=== PATIENT | male | born 1990 | race Caucasian/White ===

== ENCOUNTER 2016-09-28 12:15 | Emergency (ER) | payer OTHER ==
[~2016-09-28] VITALS: Ht 157.5 cm; Wt 67.9 kg
[2016-09-28 12:18] VITALS: Ht 157.5 cm; Wt 67.9 kg
--- NOTE | 2016-09-28 13:28 | ERD ---
ER Documentation Chief Complaint Date/Time DATE: 09/28/16 TIME: 13:26 Chief Complaint RIGHT LOWER ABD PAIN RAD TESTICLE, INTERMITTENT X1 WEEK, WORSEN LAST NIGHT HPI This is a 26-year-old male who presents to the emergency department today complaining of right testicular pain and swelling that started 1 week ago. Patient states that he was sleeping when the pain started. States the pain goes up to the right side of his stomach states he took ibuprofen for the pain and the swelling had decreased but then it returned last night it was worse. Patient states that he was last sexually active 2-3 weeks ago and has one partner. States he has some dysuria. Denies any fevers or chills. ROS All systems reviewed and are negative except as per history of present illness. Medications Home Meds Active Scripts Ciprofloxacin Hcl* (Ciprofloxacin Hcl*) 500 Mg Tablet, 500 MG PO BID for 14 Days , TAB Prov:HEBER TIWARI PA-C 09/28/16 Ibuprofen* (Motrin*) 800 Mg Tab, 800 MG PO Q6, #30 TAB Prov:HEBER TIWARI PA-C 09/28/16 Hydrocodone/Acetaminophen ([place] 5-325 Tablet) 1 Each Tablet, 1 TAB PO Q6H Y for PAIN, #12 TAB Prov:HEBER TIWARI PA-C 09/28/16 Allergies Allergies: Coded Allergies: No Known Allergy (Unverified , 09/28/16) Physical Exam Vitals Vital Signs Date Time Temp Pulse Resp B/P Pulse Ox O2 Delivery O2 Flow Rate FiO2 09/28/16 12:18 98.1 64 18 106/54 99 Physical Exam Const: No acute distress Head: Atraumatic Eyes: Normal Conjunctiva ENT: Normal External Ears, Nose and Mouth. Neck: Full range of motion..~ No meningismus. Resp: Clear to auscultation bilaterally Cardio: Regular rate and rhythm, no murmurs Abd: Soft, right lower quadrant tenderness non distended. Normal bowel sounds. No specific tenderness at McBurney's. uncircumcised penis. No purulent discharge. Right testicle with erythema , warmth and swelling and tenderness palpation. Left testicle nontender. Both testicles descended bilaterally. Skin: No petechiae or rashes Back: No midline or flank tenderness Ext: No cyanosis, or edema Neur: Awake and alert Psych: Normal Mood and Affect Result Diagram: 09/28/16 1345 09/28/16 1345 Results 24 hrs Laboratory Tests Test 09/28/16 13:45 White Blood Count 14.810^3/ul Red Blood Count 5.1110^6/ul Hemoglobin 16.6g/dl Hematocrit 47.7% Mean Corpuscular Volume 93.3fl Mean Corpuscular Hemoglobin 32.5pg Mean Corpuscular Hemoglobin Concent 34.8g/dl Red Cell Distribution Width 12.2% Platelet Count 72684^3/UL Mean Platelet Volume 9.3fl Neutrophils % 85.1% Lymphocytes % 8.8% Monocytes % 5.5% Eosinophils % 0.0% Basophils % 0.1% Nucleated Red Blood Cells % 0.0/100WBC Neutrophils # 12.610^3/ul Lymphocytes # 1.310^3/ul Monocytes # 0.810^3/ul Eosinophils # 0.010^3/ul Basophils # 0.010^3/ul Nucleated Red Blood Cells # 0.010^3/ul Urine Color LT. YELLOW Urine Clarity CLEAR Urine pH 6.5 Urine Specific [place] 1.020 Urine Ketones 40 Urine Nitrite NEGATIVE Urine Bilirubin NEGATIVE Urine Urobilinogen 2.0 E.U./dL Urine Leukocyte Esterase TRACE Urine Microscopic RBC 0-2/HPF Urine Microscopic WBC 2-5/HPF Urine Squamous Epithelial Cells OCCASIONAL Urine Mucus MANY Urine Hemoglobin NEGATIVE Urine Glucose NEGATIVE% Urine Total Protein TRACE Sodium Level 141mmol/L Potassium Level 4.0mmol/L Chloride Level 100mmol/L Carbon Dioxide Level 26mmol/L Anion Gap 19 Blood Urea Nitrogen 11mg/dl Creatinine 0.74mg/dl Glucose Level 94mg/dl Calcium Level 9.8mg/dl Total Bilirubin 2.1mg/dl Direct Bilirubin 0.00mg/dl Indirect Bilirubin 2.1mg/dl Aspartate Amino Transf (AST/SGOT) 21IU/L Alanine Aminotransferase (ALT/SGPT) 22IU/L Alkaline Phosphatase 87IU/L Total Protein 8.5g/dl Albumin 4.6g/dl Globulin 3.90g/dl Albumin/Globulin Ratio 1.17 Lipase 30U/L Current Medications Medications (Trade) Dose Ordered Sig/Mariaa Route PRN Reason Start Time Stop Time Status Last Admin Dose Admin Acetaminophen/ Hydrocodone Bitart ([place] (5/325)) 1 tab ONCE ONCE PO 09/28/16 13:30 09/28/16 13:31 DC 09/28/16 13:37 Azithromycin (Zithromax) 1,000 mg ONCE ONCE PO 09/28/16 15:30 09/28/16 15:31 DC 09/28/16 15:30 Ceftriaxone Sodium (Rocephin) 250 mg ONCE ONCE IM 09/28/16 15:30 09/28/16 15:31 DC 09/28/16 15:30 DIAGNOSTIC IMAGING REPORT Patient: ARUN BUTLER : 1990 Age: 26 Sex: M MR #: [id number] DOS: 09/28/16 1307 Ordering MD: HEBER TIWARI PA-C Location: [facility] Room/Bed: PROCEDURE: Scrotal ultrasound CLINICAL INDICATION: Right testicular pain and swelling TECHNIQUE: Scrotal ultrasound was performed with sagittal and transverse views. Davis scale and color imaging was performed. Images were reviewed on high resolution PACS monitors. COMPARISON: None available FINDINGS: The right testicle measures 3.4 x 2.3 x 2.5 cm. There is normal size and echogenicity and morphology of the right testicle with normal blood flow. The right epididymis is enlarged and hypervascular measuring 2.0 x 1.3 cm. There is mild thickening of the right scrotal wall. Small right hydrocele with septations is present. No mass or cyst or other abnormality is present. There is no evidence for a varicocele. The left testicle measures 3.1 x 1.8 x 2.3 cm. There is normal size and echogenicity and morphology of the left testicle with normal blood flow. The left epididymis is normal. No hydrocele is seen. Soft tissues are unremarkable. No mass or cyst or other abnormality is present. There is no evidence for a varicocele. IMPRESSION: 1. Enlarged hypervascular right epididymis with associated septated hydrocele and right scrotal wall edema. Findings consistent with epididymitis. 2. No evidence for testicular torsion in either testes. RPTAT: HH .North Pedraza MD, MD Date Time Electronically viewed and signed by .North Pedraza MD, MD on 09/28/2016 14:40 .M/ CC: HEBER TIWARI PA-C Procedures/MDM This is a 26-year-old male who presents the emergency department today complaining of right testicular pain and swelling for the past week. On physical exam patient had a significant amount testicular pain and swelling and therefore I did obtain laboratory work as well as an ultrasound Laboratory work is an elevated white blood cell count of 14.8. He is not anemic. Platelets are within normal limits. Electrolytes are within normal limits. Glucose within normal limits. Liver functions normal limits. Lipase within normal limits. UA shows trace leukocyte Estrace Urine was sent for gonorrhea and chlamydia Testicular ultrasound shows enlarged hypervascular right epididymis with associated septated hydrocele and right scrotal wall edema. Findings consistent with epididymitis. There is no evidence for testicular torsion in either testes. There is no mass or cyst or abnormality present or evidence of a varicocele. Patient's epididymitis likely the source of his pain and swelling. There is no evidence of testicular torsion or abscess. I feel the patient's right lower quadrant pain is related to his testicular pain I do not feel he requires a CT scan given that he had nonspecific tenderness in the right lower quadrant and no specific at McBurney's point. Patient indicated that the pain really only comes when he has pain in his testicle. Given patient's age I will treat him for possible gonorrhea and chlamydia here in the emergency department. I have explained this to the patient. I explained to the patient he does need to notify his sexual partner so that they may get tested. Patient was given azithromycin and Rocephin here in the emergency department. I will give him a prescription for Cipro for home for 2 weeks as well as a short course of [place] for home as well as Motrin. Patient was given [place] here in the emergency department. At this time the patient is stable for discharge and outpatient management. Patient should follow up with their PCP in the next 1-2 days. They may return to the emergency department sooner for any persistent or worsening of symptoms. Patient understood and agreed with the plan. Discussed the patient with Dr. Leblanc and he is in agreement with the plan Departure Diagnosis: Primary Impression: Epididymitis Condition: Fair HEBER TIWARI PA-C September 28, 2016 13:28
[2016-09-28] MEDS ORDERED: HYDROCODONE/APAP (5/325) TAB PO ONE (13:30)
[2016-09-28 13:53] LABS: ADD SCAN DIFF NO
[2016-09-28 13:55] LABS: BASOPHILS % 0.1 % (0.0-2.0); HEMATOCRIT 47.7 % (42.0-52.0); HEMOGLOBIN 16.6 g/dl (14.0-18.0); LYMPHOCYTES # 1.3 10^3/ul (0.8-2.9); LYMPHOCYTES % 8.8 % (15.0-51.0); MEAN CORPUSCULAR HEMOGLOBIN 32.5 pg (29.0-33.0); MEAN CORPUSCULAR HGB CONC 34.8 g/dl (32.0-37.0); MEAN CORPUSCULAR VOLUME 93.3 fl (82.0-101.0); MEAN PLATELET VOLUME 9.3 fl (7.4-10.4); MONOCYTE # 0.8 10^3/ul (0.3-0.9); MONOCYTES % 5.5 % (0.0-11.0); NEUTROPHIL # 12.6 10^3/ul (1.6-7.5); NEUTROPHILS % 85.1 % (39.0-77.0); PLATELET COUNT 232 10^3/UL (140-415); RED BLOOD COUNT 5.11 10^6/ul (4.70-6.10); RED CELL DISTRIBUTION WIDTH 12.2 % (11.5-14.5); WHITE BLOOD COUNT 14.8 10^3/ul (4.8-10.8)
[2016-09-28 13:57] LABS: ADD UMIC YES; URINE BLOOD (Dip) NEGATIVE (NEGATIVE); URINE COLOR LT. YELLOW (YELLOW); URINE GLUCOSE (Dip) NEGATIVE (NEGATIVE); URINE KETONES (Dip) 40 (NEGATIVE); URINE LEUKOCYTE ESTERASE (Dip) TRACE (NEGATIVE); URINE NITRITE (Dip) NEGATIVE (NEGATIVE); URINE TOTAL PROTEIN (Dip) TRACE (NEGATIVE); URINE UROBILINOGEN (Dip) 2.0 E.U./dL (0.1-1.0)
[2016-09-28 14:11] LABS: ALBUMIN 4.6 g/dl (3.3-4.9)
[2016-09-28 14:14] LABS: ALBUMIN/GLOBULIN RATIO 1.17; BILIRUBIN,INDIRECT 2.1 mg/dl (0-1.1); BILIRUBIN,TOTAL 2.1 mg/dl (0.2-1.3); CREATININE 0.74 mg/dl (0.61-1.24); TOTAL PROTEIN 8.5 g/dl (6.1-8.1)
[2016-09-28 14:15] LABS: CALCIUM 9.8 mg/dl (8.4-10.2); URINE BILIRUBIN (Dip) NEGATIVE (NEGATIVE)
[2016-09-28 14:18] LABS: SQUAMOUS EPITHELIAL CELL,UR OCCASIONAL
[2016-09-28 14:19] LABS: MUCUS,URINE MANY; URINE RBCS 0-2 /HPF (0)
--- NOTE | 2016-09-28 14:40 | RADRPT ---
PROCEDURE: Scrotal ultrasound CLINICAL INDICATION: Right testicular pain and swelling TECHNIQUE: Scrotal ultrasound was performed with sagittal and transverse views. Davis scale and co howard imaging was performed. Images were reviewed on high resolution PACS monitors. COMPARISON: None available FINDINGS: The right testicle measures 3.4 x 2.3 x 2.5 cm. There is normal size and echogenicity and morphology of the right testicle with normal blood flow. The right epididymis is enlarged and hypervascular me asuring 2.0 x 1.3 cm. There is mild thickening of the right scrotal wall. Small right hydrocele wit h septations is present. No mass or cyst or other abnormality is present. There is no evidence for a varicocele. The left testicle measures 3.1 x 1.8 x 2.3 cm. There is normal size and echogenicity and morphology of the left testicle with normal blood flow. The left epididymis is normal. No hydrocele is seen. Soft tissues are unremarkable. No mass or cyst or other abnormality is present. There is no evidenc e for a varicocele. IMPRESSION: 1. Enlarged hypervascular right epididymis with associated septated hydrocele and right scrotal wall edema. Findings consistent with epididymitis. 2. No evidence for testicular torsion in either testes. RPTAT: HH .North Pedraza MD, Date Time Electronically viewed and signed by .North Pedraza MD, MD on 09/28/2016 14:40 .M/
[2016-09-28] MEDS ORDERED: AZITHROMYCIN 250 MG TAB PO ONE (15:30)
[2016-09-28] MEDS ORDERED: CEFTRIAXONE 250 MG INJ IM ONE (15:30)
[2016-09-28] MEDS ORDERED: CIPR500T4 PO (15:31)
[2016-09-28] MEDS ORDERED: IBUP800T25 PO (15:31)
[2016-09-28] MEDS ORDERED: HYDR-906 PO (15:31)
[2016-09-28 15:49] VITALS: BP 106/58; PULSE 58; RESP 18; TEMP 98.7
== END 2016-09-28 15:49 | disposition home or self-care (01) ==
LOC: FTE 12:15
DX: N45.1 Epididymitis (principal)
CPT/HCPCS: 36415; 76870; 80053; 81001; 83690; 85025; 87591; 96372; J0696; Z7502; Z7610; 81003